=== PATIENT | female | born 1935 | race Caucasian/White ===

== ENCOUNTER 2022-09-03 15:10 | Inpatient (IN) ==
[2022-09-03 16:43] LABS: Basophils % 0.3 % (0.0-0.8); Eosinophils % 0.2 % (0.00-10.9); Hematocrit 32.5 VOL% (35.7-47.0); Hemoglobin 10.4 GM/DL (12.0-16.0); Immature Granulocytes % 0.6 %; Immature Granulocytes Absolute 0.09 #; Lymphocytes # 0.6 10*3/uL (1.4-4.0); Mean Corpuscular Volume 84.9 FL (87-102); Mean Platelet Volume 10.1 FL (9.6-12.0); Monocytes # 1.1 10*3/uL (0.11-0.8); Monocytes % 7.4 % (1.7-12.7); Neutrophils % 87.5 % (38.7-73.9); Platelet Count 263 T/CUMM (130-400); Red Blood Count 3.83 MC/CUMM (3.8-5.5); Red Cell Distribution Width 13.1 % (9.3-17.3); White Blood Count 15.3 T/CUMM (4-12)
[2022-09-03 16:50] LABS: Calcium 8.8 MG/DL (8.5-10.1); Osmolality,Calculated 281.4 MOS/KG (273-304); Potassium 4.2 MMOL/L (3.5-5.1)
[2022-09-03 16:59] LABS: INR 0.9; PT Patient Result 10.5 SECS (10.1-12.1); Partial Thromboplastin Time 25.4 SECS (23.7-32.9)
[2022-09-03 18:05] LABS: Band Neutrophils 5 % (0-10); Lymphocytes 4 % (20-55); Platelet Estimate Normal; Total Cells Counted 100
[2022-09-03 18:06] LABS: Ovalocytes Slight
[2022-09-03] MEDS ORDERED: ONDANSETRON 4 MG/2 ML VIAL IV PRN (18:49)
[2022-09-03] MEDS ORDERED: ACETAMINOPHEN 325 MG TABLET PO PRN (18:49)
[2022-09-03] MEDS ORDERED: SODIUM CHLORIDE 0.9% 500 ML IV SCH (19:00)
[2022-09-03] MEDS: ENOXAPARIN 40 MG/0.4 ML SYRINGE SUBCUT SCH (21:18)
[2022-09-03] MEDS: DOCUSATE SODIUM 100 MG CAPSULE PO SCH (21:18)
[2022-09-04 05:40] LABS: Basophils % 0.2 % (0.0-0.8); Eosinophils # 0.1 10*3/uL (0.0-0.87); Hematocrit 27.7 VOL% (35.7-47.0); Immature Granulocytes % 0.5 %; Immature Granulocytes Absolute 0.04 #; Lymphocytes # 0.9 10*3/uL (1.4-4.0); Lymphocytes % 10.5 % (21.3-54.2); Mean Corpuscular HGB Conc 32.5 GM/DL (32-36); Mean Corpuscular Volume 86.8 FL (87-102); Mean Platelet Volume 10.5 FL (9.6-12.0); Monocytes # 1.1 10*3/uL (0.11-0.8); Monocytes % 12.9 % (1.7-12.7); Neutrophils % 74.9 % (38.7-73.9); Platelet Count 205 T/CUMM (130-400); Red Blood Count 3.19 MC/CUMM (3.8-5.5); Red Cell Distribution Width 13.1 % (9.3-17.3); White Blood Count 8.1 T/CUMM (4-12)
[2022-09-04 05:50] LABS: Calcium 8.2 MG/DL (8.5-10.1); Osmolality,Calculated 278.5 MOS/KG (273-304); Potassium 4.1 MMOL/L (3.5-5.1)
[2022-09-04] MEDS ORDERED: ceFAZolin 2,000 MG/50 ML DUPLEX IV ONE (06:58)
[2022-09-04] MEDS: PANTOPRAZOLE 40 MG TABLET PO SCH (09:05)
[2022-09-04] MEDS: DOCUSATE SODIUM 100 MG CAPSULE PO SCH ×2 (09:05→21:07)
[2022-09-04] MEDS ORDERED: fentaNYL 100 MCG/2 ML VIAL ONE (09:17)
[2022-09-04] MEDS ORDERED: propofoL 200 MG/20 ML VIAL IV ONE (09:17)
[2022-09-04] MEDS ORDERED: LIDOCAINE 2% 5 ML VIAL ONE (09:17)
[2022-09-04] MEDS ORDERED: ETOMIDATE 40 MG/20 ML VIAL IV ONE (09:17)
[2022-09-04] MEDS ORDERED: MAGNESIUM HYDROXIDE SUSP 30 ML UDCUP PO PRN (09:37)
[2022-09-04] MEDS ORDERED: LACTULOSE 20 GM/30 ML UDCUP PO PRN (09:38)
[2022-09-04] MEDS ORDERED: BISACODYL 10 MG SUPP RECTAL PRN (09:38)
[2022-09-04] MEDS ORDERED: diphenhydrAMINE CAP 25 MG CAPSULE PO PRN (09:38)
[2022-09-04] MEDS ORDERED: MORPHINE 2 MG/1 ML SYRINGE IV PRN ×2 (09:40→09:45)
[2022-09-04] MEDS ORDERED: ePHEDrine 50 MG/ML VIAL ONE (10:06)
[2022-09-04] MEDS ORDERED: PHENYLEPHRINE 1 MG/10 ML SYRINGE IV ONE (10:29)
[2022-09-04] MEDS ORDERED: SEVOFLURANE 1 UNIT/15 MINUTE INH ONE (10:32)
[2022-09-04] MEDS ORDERED: BUPIVACAINE MPF 0.25% 30 ML VIAL ONE (10:53)
[2022-09-04] MEDS ORDERED: LIDOCAINE 1% 5 ML VIAL ONE (10:54)
[2022-09-04] MEDS ORDERED: DEXAMETHASONE 4 MG/1 ML VIAL ONE (10:54)
[2022-09-04] MEDS ORDERED: LABETALOL 20 MG/4 ML SYRINGE IV ONE (11:08)
[2022-09-04] MEDS ORDERED: HYDROmorphone 1 MG/1 ML SYRINGE IV PRN (11:09)
[2022-09-04] MEDS ORDERED: ONDANSETRON 4 MG/2 ML VIAL IV PRN (11:09)
[2022-09-04] MEDS ORDERED: LABETALOL 100 MG/20 ML VIAL IV ONE (11:11)
[2022-09-04] MEDS: LACTATED RINGERS 1,000 ML IV SCH ×2 (11:56→16:18)
[2022-09-04] MEDS ORDERED: oxyCODONE/ACETAMINOPHEN 5-325 MG TABLET PO PRN (13:20)
[2022-09-04] MEDS: ACETAMINOPHEN 500 MG TABLET PO SCH ×2 (14:26→21:07)
[2022-09-04] MEDS ORDERED: hydrALAZINE 20 MG/1 ML VIAL IV PRN (14:34)
[2022-09-04] MEDS ORDERED: oxyCODONE IR 5 MG TABLET PO PRN (16:16)
[2022-09-04] MEDS: ROSUVASTATIN 10 MG TABLET PO SCH (21:07)
[2022-09-04] MEDS: ENOXAPARIN 40 MG/0.4 ML SYRINGE SUBCUT SCH (21:08)
[2022-09-05] MEDS: ACETAMINOPHEN 500 MG TABLET PO SCH ×3 (05:37→21:21)
[2022-09-05 05:54] LABS: Calcium 7.8 MG/DL (8.5-10.1); Osmolality,Calculated 280.4 MOS/KG (273-304); Potassium 4.1 MMOL/L (3.5-5.1)
[2022-09-05 06:18] LABS: Basophils % 0.4 % (0.0-0.8); Eosinophils # 0.4 10*3/uL (0.0-0.87); Eosinophils % 4.5 % (0.00-10.9); Hematocrit 21.1 VOL% (35.7-47.0); Immature Granulocytes % 0.7 %; Immature Granulocytes Absolute 0.06 #; Lymphocytes # 0.6 10*3/uL (1.4-4.0); Lymphocytes % 6.9 % (21.3-54.2); Mean Corpuscular HGB Conc 33.2 GM/DL (32-36); Mean Corpuscular Volume 85.4 FL (87-102); Mean Platelet Volume 10.8 FL (9.6-12.0); Monocytes % 12.2 % (1.7-12.7); Neutrophils % 75.3 % (38.7-73.9); Red Cell Distribution Width 13.2 % (9.3-17.3); White Blood Count 8.4 T/CUMM (4-12)
[2022-09-05 06:21] LABS: Red Blood Count 2.47 MC/CUMM (3.8-5.5)
[2022-09-05 06:22] LABS: Platelet Count 153 T/CUMM (130-400)
[2022-09-05] MEDS ORDERED: SODIUM CHLORIDE 0.9% 1,000 ML IV PRN ×2 (07:18→08:06)
[2022-09-05] MEDS: PANTOPRAZOLE 40 MG TABLET PO SCH (09:15)
[2022-09-05] MEDS: DOCUSATE SODIUM 100 MG CAPSULE PO SCH ×2 (09:15→21:25)
[2022-09-05] MEDS: DONEPEZIL 10 MG TABLET PO SCH (09:15)
[2022-09-05] MEDS: MEMANTINE 5 MG TABLET PO SCH (09:15)
[2022-09-05] MEDS: MELOXICAM 7.5 MG TABLET PO SCH (09:15)
[2022-09-05] MEDS: SERTRALINE 25 MG TABLET PO SCH (09:15)
[2022-09-05] MEDS ORDERED: TUBERCULIN SKIN TEST 0.1 ML SYRINGE INTRADERM ONE (09:30)
[2022-09-05] MEDS: LACTATED RINGERS 1,000 ML IV SCH (15:48)
[2022-09-05 19:30] LABS: Hemoglobin 9.5 GM/DL (12.0-16.0)
[2022-09-05] MEDS: ROSUVASTATIN 10 MG TABLET PO SCH (21:20)
[2022-09-05] MEDS: ENOXAPARIN 40 MG/0.4 ML SYRINGE SUBCUT SCH (21:23)
[2022-09-06] MEDS: LACTATED RINGERS 1,000 ML IV SCH (02:01)
[2022-09-06 05:28] LABS: Basophils # 0.1 10*3/uL (0.0-0.2); Basophils % 0.6 % (0.0-0.8); Eosinophils # 0.7 10*3/uL (0.0-0.87); Eosinophils % 7.1 % (0.00-10.9); Hematocrit 29.5 VOL% (35.7-47.0); Hemoglobin 9.6 GM/DL (12.0-16.0); Immature Granulocytes % 0.5 %; Immature Granulocytes Absolute 0.05 #; Lymphocytes # 0.5 10*3/uL (1.4-4.0); Lymphocytes % 5.1 % (21.3-54.2); Mean Corpuscular HGB Conc 32.5 GM/DL (32-36); Mean Corpuscular Volume 85.5 FL (87-102); Mean Platelet Volume 10.6 FL (9.6-12.0); Monocytes % 10.8 % (1.7-12.7); Neutrophils % 75.9 % (38.7-73.9); Platelet Count 152 T/CUMM (130-400); Red Blood Count 3.45 MC/CUMM (3.8-5.5); Red Cell Distribution Width 13.5 % (9.3-17.3); White Blood Count 9.6 T/CUMM (4-12)
[2022-09-06] MEDS: ACETAMINOPHEN 500 MG TABLET PO SCH ×3 (05:52→21:19)
[2022-09-06 06:00] LABS: Calcium 7.2 MG/DL (8.5-10.1); Osmolality,Calculated 278.5 MOS/KG (273-304); Potassium 3.7 MMOL/L (3.5-5.1)
[2022-09-06] MEDS: SERTRALINE 25 MG TABLET PO SCH (09:01)
[2022-09-06] MEDS: DOCUSATE SODIUM 100 MG CAPSULE PO SCH ×2 (09:01→21:21)
[2022-09-06] MEDS: MEMANTINE 5 MG TABLET PO SCH (09:01)
[2022-09-06] MEDS: CALCIUM (CARBONATE)/VITAMIN D 600 MG-400 UNIT TABLET PO SCH ×2 (09:01→17:16)
[2022-09-06] MEDS: DONEPEZIL 10 MG TABLET PO SCH (09:01)
[2022-09-06] MEDS: PANTOPRAZOLE 40 MG TABLET PO SCH (09:01)
[2022-09-06] MEDS: MELOXICAM 7.5 MG TABLET PO SCH (09:01)
[2022-09-06] MEDS: amLODIPine 5 MG TABLET PO SCH (09:01)
[2022-09-06] MEDS: ROSUVASTATIN 10 MG TABLET PO SCH (21:19)
[2022-09-06] MEDS: ENOXAPARIN 40 MG/0.4 ML SYRINGE SUBCUT SCH (21:23)
[2022-09-07] MEDS: ACETAMINOPHEN 500 MG TABLET PO SCH (05:20)
[2022-09-07 07:56] VITALS: BP 169/57
[2022-09-07] MEDS: amLODIPine 5 MG TABLET PO SCH (08:17)
[2022-09-07] MEDS: DONEPEZIL 10 MG TABLET PO SCH (08:18)
[2022-09-07] MEDS: MEMANTINE 5 MG TABLET PO SCH (08:18)
[2022-09-07] MEDS: DOCUSATE SODIUM 100 MG CAPSULE PO SCH (08:18)
[2022-09-07] MEDS: MELOXICAM 7.5 MG TABLET PO SCH (08:18)
[2022-09-07] MEDS: CALCIUM (CARBONATE)/VITAMIN D 600 MG-400 UNIT TABLET PO SCH (08:18)
[2022-09-07] MEDS: SERTRALINE 25 MG TABLET PO SCH (08:18)
[2022-09-07] MEDS: PANTOPRAZOLE 40 MG TABLET PO SCH (08:18)
[2022-09-07] MEDS ORDERED: CHOLECALCIFEROL 1,000 UNIT TABLET PO SCH (09:00)
== END 2022-09-07 11:30 | disposition swing bed (61) | DRG 481 ==
LOC: N.ED 15:10 → N.EDINP 18:49 → SUATTDRO 18:49 → N.EDINP 20:36 → N.3E 21:01
PROVIDERS: ADMIT Internal Medicine; ATTEND Emergency Medicine